=== PATIENT | female | born 1930 | race Two or more races ===

== ENCOUNTER 2016-04-02 16:30 | Inpatient (IN) | payer MEDICARE, MEDICAID ==
[~2016-04-02] VITALS: Ht 160 cm; Wt 52.2 kg
[2016-04-02] MEDS ORDERED: LORAZEPAM 1 MG TABLET ONE (17:19)
[2016-04-02] MEDS ORDERED: LORA0.5T PO (17:29)
[2016-04-02] MEDS ORDERED: DONE5TAB34 PO (17:29)
[2016-04-02] MEDS ORDERED: MULT-659 PO (17:29)
[2016-04-02] MEDS ORDERED: METF500T4 PO (17:29)
[2016-04-02] MEDS ORDERED: OLAN5TAB3 PO (17:29)
[2016-04-02] MEDS ORDERED: ZOLP5TAB7 PO (17:29)
[2016-04-02] MEDS ORDERED: SIMV20TA6 PO (17:29)
[2016-04-02] MEDS ORDERED: FERR325T28 PO (17:29)
[2016-04-02] MEDS ORDERED: LORAZEPAM 1 MG TABLET PO ONE (17:30)
[2016-04-02] MEDS ORDERED: MAG HYDROX/AL HYDROX/SIMETH 30 ML UDC PO PRN (20:00)
[2016-04-02] MEDS ORDERED: MAGNESIUM HYDROXIDE 30 ML UDC PO PRN (20:00)
[2016-04-02 20:23] VITALS: BP 143/78
[2016-04-03] MEDS ORDERED: INSULIN REGULAR, HUMAN 100 UNIT/ML 3 ML VIAL SQ PRN
[2016-04-03] MEDS ORDERED: ZOLPIDEM TARTRATE 5 MG TABLET PO PRN (01:00)
[2016-04-03] MEDS ORDERED: DEXTROSE 50%-WATER 50 ML DISP.SYRIN IV PRN ×2 (01:00)
[2016-04-03] MEDS ORDERED: BLOOD SUGAR DIAGNOSTIC 1 EACH STRIP IN SCH (07:30)
[2016-04-03] MEDS: BLOOD SUGAR DIAGNOSTIC 1 EACH STRIP IN SCH ×4 (07:43→22:13)
[2016-04-03 08:01] LABS: BASOPHILS % (AUTO) 0.6 % (0.0-2.0); DIFF TOTAL % 100 %; EOSINOPHILS % (AUTO) 0.3 % (0.0-6.0); HEMATOCRIT 39 % (33-45); LYMPHOCYTES # (AUTO) 1.6 /CMM (0.8-4.8); LYMPHOCYTES % (AUTO) 23.7 % (20.0-44.0); MEAN CORPUSCULAR HEMOGLOBIN 31 PG (26.0-33.0); MEAN CORPUSCULAR HGB CONC 33 g/dl (31.0-36.0); MEAN CORPUSCULAR VOLUME 92 fL (82-100); MONOCYTES # (AUTO) 0.6 /CMM (0.1-1.30); MONOCYTES % (AUTO) 8.4 % (2.0-12.0); NEUTROPHILS # (AUTO) 4.6 /CMM (1.8-8.9); PLATELET COUNT (AUTO) 298 /CMM (150-450); RED BLOOD CELL COUNT(AUTO) 4.21 MIL/uL (4.0-5.2); WHITE BLOOD COUNT (AUTO) 6.9 K/uL (4.3-11.0)
[2016-04-03 08:14] LABS: ALBUMIN 3.1 g/dL (3.4-5.0); BILIRUBIN,TOTAL 0.9 mg/dL (0.2-1.0); CALCIUM, SERUM 9.1 mg/dL (8.5-10.1); CREATININE 1.3 mg/dL (0.6-1.3); POTASSIUM 4.5 mmol/L (3.5-5.1)
[2016-04-03] MEDS: SIMVASTATIN 20 MG TABLET PO SCH (08:23)
[2016-04-03] MEDS: MULTIVIT, IRON, MIN NO. 8, FA 1 TAB TABLET PO SCH (08:23)
[2016-04-03] MEDS: METFORMIN 500 MG TABLET PO SCH ×2 (08:23→16:37)
[2016-04-03] MEDS: FERROUS SULFATE (325 MG) 325 MG/TAB TABLET PO SCH ×2 (08:23→16:36)
[2016-04-03] MEDS: LORAZEPAM 0.5 MG TABLET PO PRN ×2 (08:28→20:22)
[2016-04-03 09:33] VITALS: BP 122/59
[2016-04-03] MEDS: INSULIN REGULAR, HUMAN 100 UNIT/ML 3 ML VIAL SQ PRN ×3 (12:52→22:15)
[2016-04-03] MEDS ORDERED: Z GUARD REMEDY 2 OZ OINT TP PRN (14:00)
[2016-04-03] MEDS: NEOMY SULF/BACITRAC ZN/POLY 15 GM TUBE TP SCH (15:37)
[2016-04-03] MEDS: Z GUARD REMEDY 2 OZ OINT TP SCH (15:37)
[2016-04-03 16:03] VITALS: BP 109/62
[2016-04-03] MEDS: OLANZAPINE 5 MG/TAB.RAPDIS PO SCH (16:37)
[2016-04-03 20:00] VITALS: BP 122/61
[2016-04-03] MEDS: DIVALPROEX SODIUM 125 MG CAP.SPRINK PO SCH (20:21)
[2016-04-03] MEDS: DONEPEZIL 5 MG TABLET PO SCH (21:53)
[2016-04-03] MEDS: ZOLPIDEM TARTRATE 5 MG TABLET PO PRN (22:10)
[2016-04-04 08:00] VITALS: BP 154/86
[2016-04-04] MEDS: METFORMIN 500 MG TABLET PO SCH ×2 (09:02→17:11)
[2016-04-04] MEDS: DIVALPROEX SODIUM 125 MG CAP.SPRINK PO SCH ×2 (09:02→21:28)
[2016-04-04] MEDS: SIMVASTATIN 20 MG TABLET PO SCH (09:02)
[2016-04-04] MEDS: OLANZAPINE 5 MG/TAB.RAPDIS PO SCH ×2 (09:02→17:11)
[2016-04-04] MEDS: BLOOD SUGAR DIAGNOSTIC 1 EACH STRIP IN SCH ×2 (09:02→12:00)
[2016-04-04] MEDS: Z GUARD REMEDY 2 OZ OINT TP SCH (09:03)
[2016-04-04] MEDS: MULTIVIT, IRON, MIN NO. 8, FA 1 TAB TABLET PO SCH (09:03)
[2016-04-04] MEDS: FERROUS SULFATE (325 MG) 325 MG/TAB TABLET PO SCH ×2 (09:03→17:11)
[2016-04-04] MEDS: NEOMY SULF/BACITRAC ZN/POLY 15 GM TUBE TP SCH (09:04)
[2016-04-04 16:00] VITALS: BP 125/68
[2016-04-04] MEDS: BOOST GLUCOSE CONTROL VANILLA 237 ML BOX PO SCH (17:11)
[2016-04-04 20:33] VITALS: BP 114/59
[2016-04-04] MEDS: DONEPEZIL 5 MG TABLET PO SCH (23:16)
[2016-04-04] MEDS: ZOLPIDEM TARTRATE 5 MG TABLET PO PRN (23:17)
[2016-04-05 08:00] VITALS: BP 132/70
[2016-04-05] MEDS: SIMVASTATIN 20 MG TABLET PO SCH (08:05)
[2016-04-05] MEDS: OLANZAPINE 5 MG/TAB.RAPDIS PO SCH (08:05)
[2016-04-05] MEDS: MULTIVIT, IRON, MIN NO. 8, FA 1 TAB TABLET PO SCH (08:05)
[2016-04-05] MEDS: FERROUS SULFATE (325 MG) 325 MG/TAB TABLET PO SCH ×2 (08:05→16:20)
[2016-04-05] MEDS: DIVALPROEX SODIUM 125 MG CAP.SPRINK PO SCH ×2 (08:05→22:16)
[2016-04-05] MEDS: BOOST GLUCOSE CONTROL VANILLA 237 ML BOX PO SCH ×2 (08:05→16:20)
[2016-04-05] MEDS: METFORMIN 500 MG TABLET PO SCH ×2 (08:05→16:20)
[2016-04-05] MEDS: Z GUARD REMEDY 2 OZ OINT TP SCH (08:08)
[2016-04-05] MEDS: NEOMY SULF/BACITRAC ZN/POLY 15 GM TUBE TP SCH (08:08)
[2016-04-05 09:06] LABS: CHOLESTEROL 158 mg/dL (<200); HDL CHOLESTEROL 69 mg/dL (40-60); LDL 70 mg/dL (0-99); TRIGLYCERIDES 55 mg/dL (30-150)
[2016-04-05] MEDS: LORAZEPAM 0.5 MG TABLET PO PRN (13:59)
[2016-04-05 16:00] VITALS: BP 107/51
[2016-04-05] MEDS: OLANZAPINE 2.5 MG TABLET PO SCH (16:22)
[2016-04-05 20:00] VITALS: BP 106/64
[2016-04-05] MEDS: DONEPEZIL 5 MG TABLET PO SCH (22:16)
[2016-04-05] MEDS: ZOLPIDEM TARTRATE 5 MG TABLET PO PRN (22:17)
[2016-04-06 08:00] VITALS: BP 131/63
[2016-04-06] MEDS: MULTIVIT, IRON, MIN NO. 8, FA 1 TAB TABLET PO SCH (08:48)
[2016-04-06] MEDS: BOOST GLUCOSE CONTROL VANILLA 237 ML BOX PO SCH ×2 (08:49→17:13)
[2016-04-06] MEDS: METFORMIN 500 MG TABLET PO SCH ×2 (08:49→17:30)
[2016-04-06] MEDS: OLANZAPINE 5 MG/TAB.RAPDIS PO SCH (08:49)
[2016-04-06] MEDS: SIMVASTATIN 20 MG TABLET PO SCH (08:49)
[2016-04-06] MEDS: LORAZEPAM 0.5 MG TABLET PO PRN ×2 (08:49→17:31)
[2016-04-06] MEDS: DIVALPROEX SODIUM 125 MG CAP.SPRINK PO SCH ×2 (08:49→21:27)
[2016-04-06] MEDS: FERROUS SULFATE (325 MG) 325 MG/TAB TABLET PO SCH ×2 (08:49→17:31)
[2016-04-06] MEDS: NEOMY SULF/BACITRAC ZN/POLY 15 GM TUBE TP SCH (08:55)
[2016-04-06] MEDS: Z GUARD REMEDY 2 OZ OINT TP SCH (08:56)
[2016-04-06] MEDS: ACETAMINOPHEN 325 MG TABLET PO PRN (11:55)
[2016-04-06 16:10] VITALS: BP 140/65
[2016-04-06] MEDS: OLANZAPINE 2.5 MG TABLET PO SCH (17:39)
[2016-04-06 19:57] VITALS: BP 106/55
[2016-04-06] MEDS: DONEPEZIL 5 MG TABLET PO SCH (21:28)
[2016-04-07] MEDS: ZOLPIDEM TARTRATE 5 MG TABLET PO PRN (02:05)
[2016-04-07 08:00] VITALS: BP 122/54
[2016-04-07] MEDS: MULTIVIT, IRON, MIN NO. 8, FA 1 TAB TABLET PO SCH (08:58)
[2016-04-07] MEDS: METFORMIN 500 MG TABLET PO SCH ×2 (08:58→17:56)
[2016-04-07] MEDS: OLANZAPINE 5 MG/TAB.RAPDIS PO SCH (08:58)
[2016-04-07] MEDS: FERROUS SULFATE (325 MG) 325 MG/TAB TABLET PO SCH ×2 (08:58→17:56)
[2016-04-07] MEDS: SIMVASTATIN 20 MG TABLET PO SCH (08:58)
[2016-04-07] MEDS: DIVALPROEX SODIUM 125 MG CAP.SPRINK PO SCH ×2 (08:58→21:50)
[2016-04-07] MEDS: NEOMY SULF/BACITRAC ZN/POLY 15 GM TUBE TP SCH (08:59)
[2016-04-07] MEDS: Z GUARD REMEDY 2 OZ OINT TP SCH (09:00)
[2016-04-07] MEDS: BOOST GLUCOSE CONTROL VANILLA 237 ML BOX PO SCH ×2 (09:03→17:57)
[2016-04-07] MEDS: LORAZEPAM 0.5 MG TABLET PO PRN ×2 (10:22→18:22)
[2016-04-07 16:00] VITALS: BP 107/56
[2016-04-07 19:55] VITALS: BP 91/96
[2016-04-07] MEDS: DONEPEZIL 5 MG TABLET PO SCH (21:50)
[2016-04-07] MEDS: OLANZAPINE 2.5 MG TABLET PO SCH (21:50)
[2016-04-08] MEDS: ZOLPIDEM TARTRATE 5 MG TABLET PO PRN (00:01)
[2016-04-08] MEDS: BOOST GLUCOSE CONTROL VANILLA 237 ML BOX PO SCH ×2 (07:49→17:07)
[2016-04-08] MEDS: MULTIVIT, IRON, MIN NO. 8, FA 1 TAB TABLET PO SCH (07:49)
[2016-04-08] MEDS: FERROUS SULFATE (325 MG) 325 MG/TAB TABLET PO SCH ×2 (07:49→17:01)
[2016-04-08] MEDS: DIVALPROEX SODIUM 125 MG CAP.SPRINK PO SCH ×2 (07:49→21:00)
[2016-04-08] MEDS: METFORMIN 500 MG TABLET PO SCH ×2 (07:50→17:01)
[2016-04-08] MEDS: OLANZAPINE 5 MG/TAB.RAPDIS PO SCH (07:50)
[2016-04-08] MEDS: Z GUARD REMEDY 2 OZ OINT TP SCH (07:50)
[2016-04-08] MEDS: SIMVASTATIN 20 MG TABLET PO SCH (07:50)
[2016-04-08] MEDS: NEOMY SULF/BACITRAC ZN/POLY 15 GM TUBE TP SCH (07:51)
[2016-04-08 08:00] VITALS: BP 103/52
[2016-04-08] MEDS: UREA 10% -AHA 4% CREAM 57 GM TUBE TP SCH ×2 (13:08→17:01)
[2016-04-08] MEDS: LORAZEPAM 0.5 MG TABLET PO PRN (13:20)
[2016-04-08] MEDS: ACETAMINOPHEN 325 MG TABLET PO PRN (15:36)
[2016-04-08] MEDS ORDERED: IV NS 0.9% 500 ML IV ONE (19:32)
[2016-04-08] MEDS ORDERED: IV SET PRIMARY PUMP SET 1 EA INFUS.SET MC ONE (19:33)
[2016-04-08] MEDS ORDERED: IV NS 0.9% 250 ML IV ONE (19:51)
[2016-04-08] MEDS ORDERED: IV NS 0.9% 1,000 ML ONE (21:16)
[2016-04-08] MEDS ORDERED: IV NS 0.9% 1,000 ML IV ONE (21:30)
[2016-04-08] MEDS: OLANZAPINE 2.5 MG TABLET PO SCH (22:00)
[2016-04-08] MEDS: DONEPEZIL 5 MG TABLET PO SCH (22:00)
[2016-04-08 22:24] VITALS: BP 76/38
[2016-04-09] MEDS: UREA 10% -AHA 4% CREAM 57 GM TUBE TP SCH ×2 (05:10→18:01)
[2016-04-09 07:52] LABS: BASOPHILS % (AUTO) 0.5 % (0.0-2.0); DIFF TOTAL % 100 %; EOSINOPHILS # (AUTO) 0.1 /CMM (0.0-0.7); HEMATOCRIT 32 % (33-45); HEMOGLOBIN 10.8 g/dL (11.5-14.8); LYMPHOCYTES # (AUTO) 1.6 /CMM (0.8-4.8); LYMPHOCYTES % (AUTO) 22.6 % (20.0-44.0); MEAN CORPUSCULAR HEMOGLOBIN 32 PG (26.0-33.0); MEAN CORPUSCULAR HGB CONC 34 g/dl (31.0-36.0); MEAN CORPUSCULAR VOLUME 93 fL (82-100); MONOCYTES # (AUTO) 0.5 /CMM (0.1-1.30); MONOCYTES % (AUTO) 7.3 % (2.0-12.0); NEUTROPHILS # (AUTO) 4.8 /CMM (1.8-8.9); NEUTROPHILS % (AUTO) 68.6 % (43.0-81.0); PLATELET COUNT (AUTO) 284 /CMM (150-450); RED BLOOD CELL COUNT(AUTO) 3.42 MIL/uL (4.0-5.2)
[2016-04-09 08:00] VITALS: BP 124/59
[2016-04-09 08:06] LABS: CALCIUM, SERUM 8.1 mg/dL (8.5-10.1); CREATININE 0.8 mg/dL (0.6-1.3); POTASSIUM 4.7 mmol/L (3.5-5.1)
[2016-04-09] MEDS: FERROUS SULFATE (325 MG) 325 MG/TAB TABLET PO SCH ×2 (08:54→18:00)
[2016-04-09] MEDS: SIMVASTATIN 20 MG TABLET PO SCH (08:54)
[2016-04-09] MEDS: BOOST GLUCOSE CONTROL VANILLA 237 ML BOX PO SCH ×2 (08:55→18:00)
[2016-04-09] MEDS: MULTIVIT, IRON, MIN NO. 8, FA 1 TAB TABLET PO SCH (08:55)
[2016-04-09] MEDS: METFORMIN 500 MG TABLET PO SCH ×2 (08:56→17:00)
[2016-04-09] MEDS: NEOMY SULF/BACITRAC ZN/POLY 15 GM TUBE TP SCH (09:02)
[2016-04-09] MEDS: Z GUARD REMEDY 2 OZ OINT TP SCH (09:02)
[2016-04-09 14:45] VITALS: BP 110/51
[2016-04-09] MEDS: DIVALPROEX SODIUM 125 MG CAP.SPRINK PO SCH ×2 (15:16→21:17)
[2016-04-09] MEDS: OLANZAPINE 5 MG/TAB.RAPDIS PO SCH (15:16)
[2016-04-09 16:00] VITALS: BP 114/62
[2016-04-09 19:57] VITALS: BP 91/47
[2016-04-09] MEDS: OLANZAPINE 2.5 MG TABLET PO SCH (21:17)
[2016-04-10] MEDS: UREA 10% -AHA 4% CREAM 57 GM TUBE TP SCH ×2 (05:24→18:36)
[2016-04-10 08:00] VITALS: BP 136/71
[2016-04-10] MEDS: METFORMIN 500 MG TABLET PO SCH ×2 (09:01→16:21)
[2016-04-10] MEDS: FERROUS SULFATE (325 MG) 325 MG/TAB TABLET PO SCH ×2 (09:02→16:21)
[2016-04-10] MEDS: OLANZAPINE 5 MG/TAB.RAPDIS PO SCH (09:02)
[2016-04-10] MEDS: DIVALPROEX SODIUM 125 MG CAP.SPRINK PO SCH ×2 (09:02→21:34)
[2016-04-10] MEDS: SIMVASTATIN 20 MG TABLET PO SCH (09:02)
[2016-04-10] MEDS: MULTIVIT, IRON, MIN NO. 8, FA 1 TAB TABLET PO SCH (09:02)
[2016-04-10] MEDS: Z GUARD REMEDY 2 OZ OINT TP SCH (09:09)
[2016-04-10] MEDS: NEOMY SULF/BACITRAC ZN/POLY 15 GM TUBE TP SCH (09:09)
[2016-04-10] MEDS: BOOST GLUCOSE CONTROL VANILLA 237 ML BOX PO SCH ×2 (09:10→16:24)
[2016-04-10 16:00] VITALS: BP 115/53
[2016-04-10 20:27] VITALS: BP 124/58
[2016-04-10] MEDS: OLANZAPINE 2.5 MG TABLET PO SCH (21:34)
[2016-04-11] MEDS: UREA 10% -AHA 4% CREAM 57 GM TUBE TP SCH (06:30)
[2016-04-11 08:00] VITALS: BP 113/53
[2016-04-11] MEDS: FERROUS SULFATE (325 MG) 325 MG/TAB TABLET PO SCH (08:49)
[2016-04-11] MEDS: DIVALPROEX SODIUM 125 MG CAP.SPRINK PO SCH (08:49)
[2016-04-11] MEDS: METFORMIN 500 MG TABLET PO SCH (08:49)
[2016-04-11] MEDS: MULTIVIT, IRON, MIN NO. 8, FA 1 TAB TABLET PO SCH (08:49)
[2016-04-11] MEDS: OLANZAPINE 5 MG/TAB.RAPDIS PO SCH (08:49)
[2016-04-11] MEDS: SIMVASTATIN 20 MG TABLET PO SCH (08:49)
[2016-04-11] MEDS: BOOST GLUCOSE CONTROL VANILLA 237 ML BOX PO SCH (08:55)
[2016-04-11] MEDS: Z GUARD REMEDY 2 OZ OINT TP SCH (08:58)
[2016-04-11] MEDS: NEOMY SULF/BACITRAC ZN/POLY 15 GM TUBE TP SCH (08:58)
== END 2016-04-11 15:00 | disposition home or self-care (01) | DRG 885 ==
LOC: ER 16:33 → GPS 18:09
PROVIDERS: ADMIT Psychiatry & Neurology Psychiatry; ATTEND Internal Medicine
DX: F29 Unspecified psychosis not due to a substance or known physiological condition (principal); N17.0 Acute kidney failure with tubular necrosis; F03.91 Unspecified dementia, unspecified severity, with behavioral disturbance; E78.5 Hyperlipidemia, unspecified; F41.9 Anxiety disorder, unspecified; K21.9 Gastro-esophageal reflux disease without esophagitis; E11.9 Type 2 diabetes mellitus without complications; D50.9 Iron deficiency anemia, unspecified; L57.0 Actinic keratosis
CPT/HCPCS: 36415; 80048-TC; 80053-TC; 80061-TC; 80164-TC; 82962-TC; 85025-TC; 87081-TC; 97001-TC; 97116-TC; 97530-TC; A4606; A6402; J1815; J7030; J7040; J7050; Z7610